=== PATIENT | male | born 1950 | race Caucasian/White ===

== ENCOUNTER 2016-12-02 07:15 | Inpatient (IN) | payer MEDICARE, OTHER ==
--- NOTE | ~2016-12-02 | DS ---
Unit #: [id number] #: [id number] Patient: YULIA JIANG [id number] [address] [place], [place] [address] [id number] I MR#: [id number] NAME: YULIA JIANG. ROOM: 315 Age: 66 Sex: M Admission Date: 12/02/2016 : 1950 Discharge Date: 12/05/2016 Attending Physician: Kyle Gonzales M.D. Primary Care Physician: Yulia Chaney M.D. DISCHARGE SUMMARY CONSULTANTS Dr. Reggie Sims. PROCEDURES PERFORMED EGD showed multiple antral ulcers, clean based. No active bleeding or stigmata from bleeding seen. Gastritis. Mild duodenitis. Normal esophagus. ADMITTING DIAGNOSES 1. Syncope. 2. Acute blood loss anemia secondary to possibly GI bleed, status post transfusion of blood. 3. History of coronary artery disease, status post stent two years ago. Follows up with Dr. Urbano. 4. Gastroesophageal reflux disease. 5. Anxiety. 6. Restless leg syndrome. 7. History of heart failure, diastolic. HISTORY OF PRESENT ILLNESS The patient is a 66-year-old male with multiple medical problems, including history of gastroesophageal reflux disease, history of coronary artery disease status post stent. The patient presented with a chief complaint of syncopal episode. On initial evaluation his hemoglobin was 7.9. He complained of having black stools prior to hospitalization. In the hospital he was transfused blood. He was seen by Dr. Sims. He had an EGD done and he tolerated that procedure well. Afterward the hemoglobin was stable. He denies any further syncopal episodes. I spoke with Dr. iSms and he mentioned it is okay to discharge. Will request him to follow up with his primary care physician, Dr. Sims and with Dr. Urbano as an outpatient. PHYSICAL EXAMINATION VITALS: On the day of discharge, temperature 98.4, pulse rate 109, respiratory rate 16, blood pressure 164/68. GENERAL: The patient is alert and oriented times three, lying in the bed, in no acute distress. HEENT: Normocephalic, atraumatic. No icterus. Pupils equally round and reactive to light and accommodation. Extraocular movements intact. NECK: Supple. No jugular venous distension. HEART: S1 and S2. Regular rate and rhythm. CHEST: Currently clears to auscultation. ABDOMEN: Soft and nontender. EXTREMITIES: No edema. Normal pulses. Unit #: [id number] #: [id number] Patient: YULIA JIANG DISCHARGE MEDICATIONS 1. Albuterol/Proventil 1 inhalation q.4 h. p.r.n. shortness of breath. 2. Ipratropium 0.5 mg nebulization q.i.d. 3. Flomax 0.4 mg daily. 4. Benicar 20 mg p.o. daily. 5. Celexa 10 mg p.o. daily. 6. Amlodipine 10 mg daily. 7. Trilipix 135 mg daily. 8. Mucinex DM 600/30 mg 1 tablet p.o. q.12 h. p.r.n. 9. Norvasc 5 mg daily. 10. Metoprolol XL 100 mg daily. 11. Mirapex 0.25 mg at bedtime. 12. Breo Ellipta 100/25 mcg inhalation. 13. Norvasc and olmesartan 1 tablet p.o. daily. 14. Lipitor 40 mg daily. 15. Montelukast 10 mg daily. 16. Multivitamin 1 capsule p.o. daily. 17. Aspirin 81 mg daily. 18. Plavix 75 mg p.o. daily. 19. Protonix 40 mg b.i.d. 20. Nitroglycerin 0.4 mg sublingual p.r.n. chest pain. FOLLOWUP The patient is instructed to follow up with his primary care physician in one to two weeks. Total time spent in his care 35 minutes. Dictated by..Juan Roberts TD: 12/05/2016 12:06 JOB #: [id number] DISCHARGE SUMMARY Page 1 of 1 X X DISCHARGE SUMMARY
--- NOTE | ~2016-12-02 | CO ---
Unit #: [id number] #: [id number] Patient: YULIA SENIOR [id number] [address] [address] [id number] I MR#: [id number] NAME: YULIA SENIOR. ROOM: 315 Age: 66 Sex: M Admission Date: 12/02/2016 : 1950 Attending Physician: Kyle Gonzales M.D. Primary Care Physician: Yulia Chaney M.D. Consultation Date: 12/03/2016 CONSULTATION REPORT PRIMARY CARE PHYSICIAN Yulia Chaney M.D. REASON FOR CONSULTATION GI bleeding. HISTORY OF PRESENTING ILLNESS Mr. Senior presented with significant weakness and near syncopal episode. He was found to be severely anemic. He has been having black stools for last 2 days. He has previously no history of GI bleeding or upper endoscopy. He does not take any NSAIDs. He does take Plavix and aspirin. He has no abdominal pain. PAST MEDICAL HISTORY Significant of coronary artery disease on Plavix therapy for 2 years, COPD on home oxygen, GERD symptoms, history of congestive heart failure. ALLERGIES None. MEDICATIONS Include Plavix, Breo, nitroglycerin, Mirapex, Combivent, fenofibric acid, Lipitor, Celexa, inhalers. FAMILY HISTORY No history of colon cancer. SOCIAL HISTORY Smoker. Nonalcoholic. No drug abuse. REVIEW OF SYSTEMS A complete review of systems was carried out, which was unremarkable other than as mentioned above. PHYSICAL EXAMINATION VITAL SIGNS: Stable, afebrile, mildly short of breath on oxygen. HEENT: Pupils are equal and reactive. Sclerae anicteric. Oral mucosa moist. NECK: No JVD. No lymphadenopathy. CHEST: Clear to auscultation bilaterally with scattered rhonchi. CARDIOVASCULAR: Regular rate rhythm. No murmurs. ABDOMEN: Soft, nontender, and nondistended. Bowel sounds are present. EXTREMITIES: Without clubbing, cyanosis, or edema. Unit #: [id number] #: [id number] Patient: YULIA SENIOR NEUROLOGICAL: Alert and awake. No focal sensory or motor deficits. DIAGNOSTIC STUDIES LABORATORY RESULTS: Hemoglobin of 7.9, white count of 12.3, platelet count of 360. BUN and creatinine of 64 and 1.4. ASSESSMENT 1. The patient's history is suggestive of melena and acute upper gastrointestinal bleeding. 2. Symptomatic anemia. 3. Near-syncope. PLAN PPI infusion. Hold Plavix and aspirin. We will need an upper endoscopy urgently. We will continue to watch H and H and give transfusion if there is any further drop. Thank you, Dr. Anaya, for this interesting consult. We will follow along. Dictated by... Juan Cross/taj TD: 12/04/2016 03:00 JOB #: [id number] CONSULTATION REPORT Page 1 of 1 X Reggie Sims MD X CONSULTATION REPORT
--- NOTE | ~2016-12-02 | CT4 ---
[facility] A Service of [facility] & [facility] RADIOLOGY TEXT RESULTS PATIENT: YULIA JIANG LOCATION: [facility] 315-01 : 50 UNIT #: [id number] AGE: [address]: Kyle Gonzales MD SEX: M ORDER DR: [id number] [facility] [address] [place], [place] [address] [id number] MR#: [id number] Acc #: [id number] NAME: YULIA JIANG. : 1950 SEX: M STUDY DATE/TIME: 12/02/2016 10:49 UNIT: [id number] ROOM: [facility] STUDY DESCRIPTION: CT Abd and Pelv Wo Cont Attending Physician: Letitia Anaya M.D. Ordering Physician: Gal Murillo M.D. Primary Care Physician: Yulia Chaney M.D. MEDICAL IMAGING REPORT This report is preliminary unless electronic signature is present EXAM CT abdomen and pelvis without contrast, 12/02/2016 1049 hours HISTORY 66-year-old man with complaint of diarrhea this morning with syncopal episode. Patient feels like passing out. Not urinating well today. COMPARISON CT chest 05/30/2015. No prior CT abdomen. TECHNIQUE Helical noncontrasted images were obtained from the lung bases through the pubic symphysis. No oral or intravenous contrast was administered. Sagittal and coronal reconstructions were performed. Total exam DLP 564 mGy-cm. This CT exam was performed with one or more of the following radiation dose reduction techniques: Automatic exposure control, adjustment of mA and/or kV according to patient size, and iterative reconstruction. FINDINGS Images through the lung bases again demonstrate bullous emphysematous changes bilaterally, with large bulla at the anterior left lung base again noted. No definite acute pulmonary or pleural finding. These findings are stable. The distal esophagus is normal. Cardiac chambers are normal. Images through the abdomen without contrast demonstrate a normal appearance to the liver, spleen, pancreas and bile ducts. The gallbladder is very contracted but no stones are seen. The adrenal glands are normal. There are no intrarenal or ureteral stones. There is a stable appearance to the right renal pelvis, where there is either a parapelvic cyst or a STS. [facility] A Service of [facility] RADIOLOGY TEXT RESULTS PATIENT: YULIA JIANG LOCATION: [facility] 315-01 : [birth year] UNIT #: [id number] AGE: [address]: Kyle Gonzales MD SEX: M ORDER DR: dilated renal pelvis measuring up to 6.2 x 4.2 cm. This is unchanged. There is no ureterectasis or ureteral calculus. The abdominal aorta demonstrates coarse atherosclerotic calcifications in the aorta and branches of the aorta without aneurysm or stenosis. These findings are stable. The stomach is fluid-filled and moderately well distended and appears normal. There is no small bowel distension or small bowel wall thickening. The appendix is well seen and normal. The colon is nondistended. There is no colonic wall thickening to suggest acute inflammation. There are fat-density inguinal herniae, larger on the left than on the right. There is no bowel involvement. IMPRESSION 1. Bullous emphysematous changes at the lung base, similar to CT 05/30/2015. 2. Gallbladder is very contracted but no stones or wall thickening is seen. The pancreas is normal. 3. Stable large parapelvic cyst in the right kidney or dilated renal pelvis unchanged from prior studies. There is no ureterectasis or ureteral calculus. 4. The stomach is fluid-filled. The small bowel and colon are decompressed. There is no bowel wall thickening. The appendix is normal. 5. Mildly enlarged prostate. 6. There are fat-density inguinal herniae, larger on the right than on the left. There is no bowel involvement. 7. Diffuse atherosclerotic calcifications are present. Dictated by... Vicki Partida M.D. THIS IS AN ELECTRONICALLY VERIFIED REPORT Vicki Partida M.D. at 12/03/2016 9:38 AM TRINITY/xuan TD: 12/02/2016 16:08 JOB #: [id number] MEDICAL IMAGING REPORT Page 1 of 1 COPY
--- NOTE | ~2016-12-02 | OR ---
Unit #: [id number] #: [id number] Patient: YULIA JIANG [id number] [address] [place], [place] [address] [id number] I MR#: [id number] NAME: YULIA JIANG. ROOM: [facility] Date of Procedure: 12/03/2016 Admission Date: 12/02/2016 Surgeon: Reggie Sims M.D. : 1950 Attending Physician: Kyle Gonzales M.D. Primary Care Physician: Yulia Chaney M.D. OPERATIVE REPORT PROCEDURE PERFORMED Esophagogastroduodenoscopy with biopsies. INDICATIONS FOR PROCEDURE The patient presented with melena, anemia of acute blood loss, undergoing evaluation with upper endoscopy. MEDICATIONS Monitored anesthesia. POSTOPERATIVE FINDINGS 1. Multiple antral ulcers clean based. No active bleeding or stigmata of recent bleeding was seen. 2. Gastritis, biopsies taken. 3. Mild duodenitis. 4. Normal esophagus. PLAN Continue PPI therapy. Watch H and H. Treat for H pylori if positive. DESCRIPTION OF PROCEDURE The patient was explained of the procedure, risks, and benefits along with risks and benefits of anesthesia. He was brought to the endoscopy room. Propofol anesthesia was given. Bite block was placed. The scope was passed down the mouth into the esophagus, stomach, duodenum, and distal duodenum. Findings as described. Gastric biopsies were taken. The scope was gently pulled out. He tolerated it well. No major complications were seen. Dictated by... Juan Cross/taj TD: 12/04/2016 03:19 JOB #: [id number] Unit #: [id number] #: [id number] Patient: YULIA JIANG OPERATIVE REPORT Page 1 of 1 X Reggie Sims MD PROCEDURE OPERATIVE NOTE
--- NOTE | ~2016-12-02 | EKG ---
PATIENT: YULIA JIANG UNIT #: [id number] Ventricular Rate: 95 BPM Atrial Rate: 95 BPM P-R Interval: 164 ms QRS Duration: 70 ms Q-T Interval: 352 ms QTC Calculation(Bezet): 442 ms P Harman: 78 degrees Calculated R Harman: 73 degrees Calculated T Harman: 77 degrees Diagnosis Line: Normal sinus rhythm Diagnosis Line: Normal ECG Diagnosis Line: When compared with ECG of 02-DEC-2016 06:33, Diagnosis Line: (unconfirmed) Diagnosis Line: No significant change was found Diagnosis Line: Confirmed by BRIANNA BENDER MD ([id number]) on Diagnosis Line: 12/02/2016 2:27:55 PM INTERPRETING MD: YULIA ELLIS
--- NOTE | ~2016-12-02 | HP ---
Unit #: [id number] #: [id number] Patient: YULIA JIANG [id number] [address] [place], [place] [address] [id number] MR#: [id number] NAME: YULIA JIANG ROOM: Age: 66 Sex: M Admission Date: 12/02/2016 : 1950 Attending Physician: Gal Murillo M.D. Primary Care Physician: Yulia Chaney M.D. HISTORY AND PHYSICAL CHIEF COMPLAINT Near syncopal episode. HISTORY OF PRESENT ILLNESS The patient is a 66-year-old male with a history of multiple medical problems brought to the emergency room feeling like passing out. The patient stated that patient woke up at 2 a.m. this morning to go to the bathroom and was feeling near syncopal episode. The patient also tried to have a bowel movement but was unsuccessful. The patient said that the patient finally started having diarrhea followed with constipation. The patient was found to have melena with dark blood, dark stool associated with this, guaiac stool positive. The patient's hemoglobin is down to 7.9 and has been admitted for the above reasons. The patient stated that the patient was recently diagnosed with tooth abscess and has been started on Augmentin for the tooth abscess for the last one week. The patient was scheduled to follow up with a dental surgeon today for the removal of the teeth. The patient is unable to provide much history and the history is obtained by speaking to the patient's family at the bedside. The patient denies any fever, chills. Positive for nausea and vomiting. The patient is also on aspirin and Plavix for a stent placed a few years ago. Denies any abdominal pain, dizziness. PAST MEDICAL HISTORY 1. History of COPD. 2. GERD. 3. NV. 4. Anxiety, depression. 5. RLS. 6. CHF. PAST SURGICAL HISTORY 1. Cardiac stent x2. 2. Inguinal hernia repair. 3. EGD. ALLERGIES No known drug allergies. HOME MEDICATIONS 1. Breo. 2. Nitroglycerin. 3. Plavix. 4. Mirapex. Unit #: [id number] #: [id number] Patient: YULIA JIANG 5. Combivent. 6. Lipitor. 7. Fenofibric acid. 8. Toprol. 9. Celexa. 10. Kirsty. 11. Flomax. 12. Loratadine. 13. Baby aspirin. 14. Multivitamins. 15. Albuterol. 16. Singulair. 17. Mucinex. 18. Ipratropium. 19. Augmentin. FAMILY HISTORY Negative for chronic lung disease. SOCIAL HISTORY Former smoker with a [id number] of tobacco use before discontinuing the habit about three years ago. No history of alcohol or any illicit drug abuse. REVIEW OF SYSTEMS A 14-point review of systems performed and only pertinent positive findings as described above, remaining are negative. PHYSICAL EXAMINATION GENERAL: On examination, the patient is laying on the bed, not in acute distress. VITAL SIGNS: Temperature 98.9, pulse 98, respiratory rate 19, blood pressure 130/117, saturating 96% at 4 L. HEENT: Head: Atraumatic, normocephalic. Pupils equal, round, and reactive to light and accommodation. Extraocular movements are intact. Dry mucous membranes. NECK: Supple. No JVD. LUNGS: Clear to auscultation bilaterally. No rhonchi. No wheezing. HEART: Regular rate and rhythm. ABDOMEN: Soft. Positive bowel sounds. EXTREMITIES: No cyanosis. No clubbing. NEUROLOGIC: Alert, awake, oriented. No gross focal motor deficit. DIAGNOSTIC STUDIES LABORATORY: Glucose 145, BUN 64, creatinine 1.4, sodium 140, potassium 4.5, chloride 106, bicarbonate 31, calcium 9.1. Total protein 5.3, albumin 2.9, total bilirubin 0.4, AST 18, ALT 16, alkaline phosphatase 28. Lipase 27. INR is 1. WBC 12.3, hemoglobin 7.9, hematocrit 24.9, platelets 360,000. CARDIOVASCULAR: EKG shows normal sinus rhythm with a rate of 95 beats per minute. ASSESSMENT 1. Gastrointestinal bleed. 2. Symptomatic anemia. 3. Near syncope. 4. Dizziness. Unit #: [id number] #: [id number] Patient: YULIA JIANG PLAN Plan to admit the patient to the inpatient with telemetry. Type and cross 1 unit of packed red blood cells and transfuse 1 unit. Continue with the Protonix drip and hold the aspirin and Plavix. GI evaluation for the EGD and colonoscopy. Zofran for the nausea and vomiting. IV fluids normal saline 75 mL per hour. Further recommendations will follow as more lab results are available. Dictated by Juan Harman TD: 12/02/2016 12:26 JOB #: [id number] HISTORY AND PHYSICAL Page 1 of 1 X X HISTORY AND PHYSICAL
[2016-12-02 06:58] LABS: POC - CKMB <1.0 ng/mL (0.0-7.9); POC - TROPONIN <0.05 ng/mL (<=0.05)
[~2016-12-02 07:15] MED LIST: ACETAMINOPHEN PO; ADVAIR 100-501 EAC1; ADVAIR 100-501 EAC1 IH; ADVAIR 100-501 EACH IH; ADVAIR 250-501 EAC1 IH; ADVAIR 250-501 EACH IH; AFRIN15 ML; ALBUTEROL 0.5ML NEB; ALBUTEROL MININEB INH; ALBUTEROL MININEB NEB; ALBUTEROL0.63 MG/3; ALBUTEROL17 GM INH; ALBUTEROL2.5 MG/0.5 IH; ALDACTONE PO; ALDACTONE25 MG PO; ASPIRIN EC81 M1 PO; ASPIRIN PO; ASPIRIN81 M2 PO; ASPIRIN81 MG PO; ATROVENT15 ML; ATROVENT15 ML NS; AUGMENTIN PO; AUGMENTIN875 MG PO; AZOR 10-20 MG1 UDTAB PO; AZOR 5-20 MG T1 EACH PO; AZOR 5/20 MG TA1 TAB PO; BACITRACIN-POLY15 GM TOP; BACTRIM DS TABL1 TA1 PO; BAYER ASPIRIN325 M1 PO; BENICAR20 MG PO; BREO ELLIPTA 21 EACH INH; CEFTIN PO; CELEXA PO; CELEXA10 MG PO; CELEXA20 MG PO; CENTRUM SILVER PO; CITALOPRAM HBR40 MG PO; CLARITIN10 M3 PO; CLOPIDOGREL75 MG PO; COLACE PO; COMBIVENT MININEB; COMBIVENT MININEB INH; COMBIVENT U/D3 M2 INH; COMBIVENT U/D3 ML INH; DELSYM COUGH+C180 M1 PO; FENOFIBRIC ACI135 MG PO; FLOMAX0.4 M1 DOB; FLOMAX0.4 M1 PO; HUMIBID-LA600 MG PO; IPRATROPIUM BR42 MCG; KEFLEX PO; LASIX PO; LASIX20 MG PO; LEVAQUIN PO; LEVAQUIN750 MG PO; LIPITOR PO; LIPITOR40 MG PO; LOW DOSE ASPIRI81 M1 PO; MELATIN3 MG PO; MEN'S ONE DAILY1 TA1 PO; METOPROLOL SUC100 MG PO; MIRALAX17 GM PO; MIRAPEX PO; MIRAPEX0.25 MG PO; MONTELUKAST SOD10 MG PO; MORGIDOX100 MG PO; MUCAPHED TABLE1 EACH PO; MUCINEX D ER T1 EAC1 PO; MUCINEX DM ER1 EACH PO; MUCUS RELIEF D PO; MULTI VITAMIN1 EACH; MULTI VITAMIN1 EACH PO; MULTIVITAMIN W/1 TAB PO; NITROGLYGERIN0.4 MG SL; NITROGYLCERIN SUBLINGUAL; NITROQUICK0.4 MG SL; OCEAN NASAL SPRAY NS; OCEAN45 ML; OMEPRAZOLE20 M1 PO; OMEPRAZOLE20 M2 PO; PHENERGAN W/CO120 ML PO; PLAVIX PO; PREDNISONE PO; PREDNISONE10 MG PO; PREDNISONE10 MG/DOSE PO; PRILOSEC PO; PRILOSEC20 M1 PO; PRILOSEC20 MG PO; SINGULAIR PO; SPIRIVA18 MCG INH; TOPROL XL PO; TOPROL XL100 MG PO; TRILIPIX135 MG PO; VIBRAMYCIN100 M1 PO; VICODIN 5/500 T1 TAB PO; ZESTORETIC 20/21 TAB PO; ZETIA PO; ZETONNA6.1 GM NS; ZITHROMAX PO; ZYRTEC PO; ZYRTEC10 M2 PO
[2016-12-02 07:38] LABS: BASOPHIL# 0.1 X10e3 (0-0.3); BASOPHIL% 0.9 % (0-2.5); EOSINOPHIL# 0.5 X10e3 (0-0.7); EOSINOPHIL% 4.5 % (0.0-7.0); HEMATOCRIT 24.9 % (38.0-50.0); HEMOGLOBIN 7.9 gm/dL (13.0-16.0); LYMPHOCYTE# 1.9 X10e3 (1.0-3.5); LYMPHOCYTE% 15.6 % (17.0-45.0); MEAN CELL VOLUME 88.7 FL (83-96); MEAN CORPUSCULAR HGB CONC 31.6 g/dL (30-36); MEAN PLATELET VOLUME 9.4 FL (6.5-11.5); MONOCYTE# 0.9 X10e3 (0-1.0); MONOCYTE% 7.6 % (3.0-12.0); NEUTROPHIL# 8.8 X10e3 (1.5-7.1); NEUTROPHIL% 71.4 % (40-75); PLATELET COUNT 360 X10e3 (140-420); RED BLOOD COUNT 2.81 X10e (3.90-5.60); WHITE BLOOD COUNT 12.3 X10e3 (4.0-10.5)
[2016-12-02 07:39] LABS: DIFF IND YES
[2016-12-02 07:47] LABS: ALBUMIN SERUM 2.9 g/dL (3.5-5.0); BILIRUBIN, DIRECT 0.1 mg/dL (0.0-0.2); BILIRUBIN,INDIRECT 0.3 mg/dL (0.0-0.9); BILIRUBIN,TOTAL 0.4 mg/dL (0.2-2.0); BUN/CREATININE RATIO 45.71; CALCIUM SERUM 9.1 mg/dL (8.4-10.2); CREATININE SERUM 1.4 mg/dL (0.6-1.4); GLOM FILT RATE Estimated 53.9 mL/min (>60); POTASSIUM 4.5 mmol/L (3.5-5.1); PROTEIN TOTAL SERUM 5.3 g/dL (6.0-8.3)
[2016-12-02 07:57] LABS: PLATELET ESTIMATE NORMAL (NORMAL)
[2016-12-02 07:58] LABS: ANISOCYTOSIS SL; RBC NORMAL YES
[2016-12-02 07:59] LABS: OVALOCYTES PRESENT; POIKILOCYTOSIS SL
[2016-12-02] MEDS ORDERED: LIPITOR40 MG PO (11:53)
[2016-12-02] MEDS ORDERED: TRILIPIX135 MG PO (11:54)
[2016-12-02] MEDS ORDERED: TOPROL XL100 MG PO (11:55)
[2016-12-02] MEDS ORDERED: AZOR 5-20 MG T1 EACH PO (11:56)
[2016-12-02] MEDS ORDERED: CELEXA20 MG PO (11:56)
[2016-12-02] MEDS ORDERED: FLOMAX0.4 M1 PO (11:57)
[2016-12-02] MEDS ORDERED: WAL-ITIN10 MG/TAB PO (11:58)
[2016-12-02] MEDS ORDERED: CENTRUM SILVER PO (11:58)
[2016-12-02] MEDS ORDERED: BAYER CHEWABLE81 MG PO (11:58)
[2016-12-02] MEDS ORDERED: BREO ELLIPTA 11 EACH INH (11:59)
[2016-12-02] MEDS ORDERED: ALBUTEROL 0.5ML INH (11:59)
[2016-12-02] MEDS ORDERED: NITROQUICK0.4 MG SL (12:00)
[2016-12-02] MEDS ORDERED: CLOPIDOGREL75 MG PO (12:00)
[2016-12-02] MEDS ORDERED: MIRAPEX0.25 MG PO (12:01)
[2016-12-02] MEDS ORDERED: COMBIVENT RESPIM4 GM INH (12:02)
[2016-12-02] MEDS ORDERED: MONTELUKAST SOD10 MG PO (12:03)
[2016-12-02] MEDS ORDERED: MUCINEX DM ER1 EACH PO (12:03)
[2016-12-02] MEDS ORDERED: ATROVENT NEB (12:03)
[2016-12-02] MEDS ORDERED: AUGMENTIN875 MG PO (12:05)
[2016-12-03 10:31] LABS: BLOOD UREA NITROGEN 39 mg/dL (9-23); CALCIUM SERUM 8.5 mg/dL (8.4-10.2); CARBON DIOXIDE 28 mmol/L (22-31); CHLORIDE 108 mmol/L (100-111); CREATININE SERUM 1.2 mg/dL (0.6-1.4); GLOM FILT RATE Estimated ABOVE60 mL/min (>60); GLUCOSE FASTING 97 mg/dL (70-110); POTASSIUM 3.6 mmol/L (3.5-5.1); SODIUM 141 mmol/L (135-145)
[2016-12-03 11:53] LABS: HEMATOCRIT 25.6 % (38.0-50.0); HEMOGLOBIN 8.2 gm/dL (13.0-16.0); MEAN CELL VOLUME 87.7 FL (83-96); MEAN CORPUSCULAR HEMOGLOBIN 27.9 PG (28-34); MEAN CORPUSCULAR HGB CONC 31.9 g/dL (30-36); RED BLOOD COUNT 2.92 X10e (3.90-5.60); RED CELL DISTRIBUTION WIDTH 14.4 % (11.0-15.5); WHITE BLOOD COUNT 11.9 X10e3 (4.0-10.5)
[2016-12-04 07:25] LABS: HEMATOCRIT 21.2 % (38.0-50.0); MEAN CELL VOLUME 88.4 FL (83-96); MEAN CORPUSCULAR HEMOGLOBIN 28.8 PG (28-34); MEAN CORPUSCULAR HGB CONC 32.6 g/dL (30-36); MEAN PLATELET VOLUME 9.2 FL (6.5-11.5); RED BLOOD COUNT 2.4 X10e (3.90-5.60); RED CELL DISTRIBUTION WIDTH 14.6 % (11.0-15.5); WHITE BLOOD COUNT 10.8 X10e3 (4.0-10.5)
[2016-12-04 07:27] LABS: HEMOGLOBIN 6.9 gm/dL (13.0-16.0)
[2016-12-04 07:46] LABS: ALBUMIN SERUM 2.9 g/dL (3.5-5.0); ALKALINE PHOSPHATASE 29 U/L (32-92); ALT (SGPT) 17 U/L (10-40); AST (SGOT) 23 U/L (10-42); BILIRUBIN,TOTAL 0.5 mg/dL (0.2-2.0); BLOOD UREA NITROGEN 25 mg/dL (9-23); CALCIUM SERUM 8.3 mg/dL (8.4-10.2); CARBON DIOXIDE 31 mmol/L (22-31); CHLORIDE 105 mmol/L (100-111); GLOM FILT RATE Estimated ABOVE60 mL/min (>60); GLUCOSE FASTING 89 mg/dL (70-110); POTASSIUM 3.9 mmol/L (3.5-5.1); PROTEIN TOTAL SERUM 4.9 g/dL (6.0-8.3); SODIUM 141 mmol/L (135-145)
[2016-12-04 16:58] LABS: HEMATOCRIT 29.3 % (38.0-50.0)
[2016-12-04 16:59] LABS: HEMOGLOBIN 9.7 gm/dL (13.0-16.0)
[2016-12-05 04:57] LABS: HEMATOCRIT 29.4 % (38.0-50.0); HEMOGLOBIN 9.5 gm/dL (13.0-16.0); MEAN CELL VOLUME 85.5 FL (83-96); MEAN CORPUSCULAR HEMOGLOBIN 27.6 PG (28-34); MEAN CORPUSCULAR HGB CONC 32.3 g/dL (30-36); MEAN PLATELET VOLUME 8.8 FL (6.5-11.5); RED BLOOD COUNT 3.44 X10e (3.90-5.60); RED CELL DISTRIBUTION WIDTH 15.2 % (11.0-15.5)
[2016-12-05] MEDS ORDERED: PROTONIX PO (12:28)
[2016-12-05] MEDS ORDERED: NORVASC PO (12:28)
== END 2016-12-05 13:45 | disposition home or self-care (01) | DRG 378 ==
LOC: CED 07:15 → CEDOF 12:58 → C3A PCU 13:48
PROVIDERS: Emergency Medicine; Internal Medicine
PROC: 30233N1 Transfusion of Nonautologous Red Blood Cells into Peripheral Vein, Percutaneous Approach (ICD-10-PCS; 2016-12-02)
PROC: 0DB68ZX Excision of Stomach, Via Natural or Artificial Opening Endoscopic, Diagnostic (ICD-10-PCS; principal; 2016-12-03 14:41)
DX: K92.2 Gastrointestinal hemorrhage, unspecified (principal); D62 Acute posthemorrhagic anemia; J44.9 Chronic obstructive pulmonary disease, unspecified; K25.9 Gastric ulcer, unspecified as acute or chronic, without hemorrhage or perforation; K21.9 Gastro-esophageal reflux disease without esophagitis; F41.9 Anxiety disorder, unspecified; G25.81 Restless legs syndrome; Z79.82 Long term (current) use of aspirin; R42 Dizziness and giddiness; R55 Syncope and collapse; I25.2 Old myocardial infarction; F32.9 Major depressive disorder, single episode, unspecified; Z79.01 Long term (current) use of anticoagulants; K29.80 Duodenitis without bleeding
CPT/HCPCS: 74176; 80048; 80053; 80076; 82553; 82947; 83690; 83735; 84484; 85014; 85018; 85025; 85027; 86850; 86900; 86901; 86923; 88305; 88312; 93005; 94640; 94760; 96360; 99291; C9113; J2405; P9016

== ENCOUNTER → 2017-02-27 | Day surgery (SDC) | payer MEDICARE, OTHER ==
[~2017-02-27] MED LIST changes: +ALBUTEROL 0.5ML INH; +ATROVENT NEB; +BAYER CHEWABLE81 MG PO; +BREO ELLIPTA 11 EACH INH; +COMBIVENT RESPIM4 GM INH; +NORVASC PO; +PROTONIX PO; +WAL-ITIN10 MG/TAB PO
--- NOTE | ~2017-02-27 | OR ---
Unit #: [id number] #: [id number] Patient: YULIA JIANG [id number] [address] [facility]. [place], [place] [address] [id number] MR#: [id number] NAME: YULIA JIANG ROOM: Date of Procedure: 02/27/2017 Admission Date: 02/27/2017 Surgeon: Reggie Sims M.D. : 1950 Attending Physician: Reggie Sims M.D. Primary Care Physician: Yulia Chaney M.D. OPERATIVE REPORT PROCEDURE PERFORMED Colonoscopy with snare polypectomy. MEDICATIONS Monitored anesthesia. POSTOPERATIVE FINDINGS 1. Polyp, transverse colon, 5 mm, snared and sent for histopathology. 2. Good prep. 3. Small hemorrhoids. PLAN Follow up on the pathology report. Given his history of polyps, I would recommend a repeat colonoscopy in 5 years. DESCRIPTION OF PROCEDURE The patient was explained of the procedure, risks, and benefits along with the risks and benefits of anesthesia. He was brought to the endoscopy room. Propofol anesthesia was given. Rectal exam was done, which was normal. Colonoscope was lubricated, passed up the rectum, advanced under direct vision all the way to the cecum. Cecum was identified by ileocecal valve and appendiceal orifice. At this point, I started to pull the scope out. Small polyp seen, was snared and sent for histopathology. I retroflexed in the rectum, small hemorrhoids seen. Scope was gently pulled out. He tolerated it well. Dictated by... Juan Cross/taj TD: 02/27/2017 23:06 JOB #: [id number] Unit #: [id number] #: [id number] Patient: YULIA JIANG OPERATIVE REPORT Page 1 of 1 X Reggie Sims MD X PROCEDURE OPERATIVE NOTE
== END | disposition home or self-care (01) ==
LOC: COPS 12:07
DX: D12.3 Benign neoplasm of transverse colon (principal); K64.9 Unspecified hemorrhoids; Z86.010 Personal history of colon polyps; K21.9 Gastro-esophageal reflux disease without esophagitis; J44.9 Chronic obstructive pulmonary disease, unspecified; I25.2 Old myocardial infarction; Z95.5 Presence of coronary angioplasty implant and graft
CPT/HCPCS: 88305